=== PATIENT | female | born 1980 | race Caucasian/White ===

== ENCOUNTER 2018-05-05 14:12 | Emergency (ER) | payer OTHER ==
[2018-05-05] MEDS ORDERED: Metoclopramide HCl 10 MG/2 ML VIAL ONE (14:34)
[2018-05-05] MEDS ORDERED: diphenhydrAMINE 50 MG/ML VIAL ONE (14:34)
[2018-05-05] MEDS ORDERED: Sodium Chloride 0.9% 1,000 ML ONE (14:34)
[2018-05-05] MEDS ORDERED: methylPREDNISolone Sod Succ/PF 125 MG/2 ML VIAL ONE (14:34)
[2018-05-05] MEDS ORDERED: Acetaminophen 500 MG TAB ONE (14:34)
--- NOTE | 2018-05-05 15:44 | CT ---
CT HEAD NONCONTRAST: History: Headache. FINDINGS: No comparison. There is no evidence of acute intracranial hemorrhage or infarct. Ventricles appear no rmal in size, shape, and position. There is no mass effect or shift of midline structures. Visualized paranasal sinuses remain well aerated. IMPRESSION: No acute intracranial abnormalities are demonstrated. POS: [facility]
[2018-05-05] MEDS ORDERED: Ketorolac Tromethamine 30 MG/ML VIAL ONE (16:32)
--- NOTE | 2018-05-05 16:45 | CT ---
CT ANGIOGRAM HEAAD WITH CONTRAST: Date: 05/05/18 Time: 1528 hours HISTORY: 37-year-old female with worst headache of life. The aneurysm was discussed by phone with Dr Londono at the time of this dictation. TECHNIQUE: IV contrast injection. Arterial bolus chasing technique scan from C1-2 level to vertex of head. Coronal and sagittal 3D MIP reconstructions. FINDINGS: Located a few millimeters superior to the junction between the bilateral vertebral arteries, there is a tiny focal right lateral outpouching of the basilar artery consistent with a small saccular aneury sm measuring approximately 3 x 3 mm. This is caudal to the origin of the right AICA. The left AICA is at the level of the aneurysm origin. There is no aneurysm at the basilar tip. No other aneurysm is v isualized. The bilateral carotid siphons, M1 segments of bilateral middle cerebral arteries, A1 and A 2 segments of the bilateral anterior cerebral arteries, bilateral posterior cerebral arteries, and bi lateral superior cerebellar arteries, are normal. There is no dural venous sinus thrombosis. IMPRESSION: 1. 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 2. This aneurysm is apparently unruptured, because there is no evidence of subarachnoid hemorrhage o n the noncontrast brain CT. Recommend neurosurgery consultation on an elective basis. POS: [facility]
[2018-05-05 17:43] LABS: INR-International Normal Ratio 1.1; PTT 30.9 SEC (22.9-36.1); Prothrombin Time 14.4 SEC (12.0-14.7)
[2018-05-05 17:49] LABS: #Lymphocytes 1.3 thou/uL (1.20-3.40); #Monocytes 0.2 thou/uL (0.11-0.59); #Neutrophils 8.8 thou/uL (1.40-6.50); %Basophils 0.4 % (0.0-1.0); %Eosinophils 0.2 % (0.0-10.0); %Lymphocytes 12.5 % (21.0-51.0); %Monocytes 1.9 % (0.0-10.0); Hemoglobin 12.1 g/dL (12.0-16.0); Mean Corpuscular HGB CONC 31.6 g/dL (32.0-36.0); Mean Corpuscular Hemoglobin 24.3 pg (27.0-31.0); Mean Corpuscular Volume 76.7 fL (78.0-98.0); Platelet Count 237 thou/uL (130-400); RBC Distribution Width 12.6 % (11.5-14.5); Red Blood Cell (RBC) Count 4.98 mill/uL (4.20-5.40); White Blood Cell (WBC) Count 10.3 thou/uL (4.8-10.8)
[2018-05-05 17:52] LABS: ALT (SGPT) 18 U/L (8-55); AST (SGOT) 16 U/L (5-34); Albumin 4.5 g/dL (3.5-5.0); Alkaline Phosphatase 88 U/L (40-150); Anion Gap 14 mmol/L (10-20); BUN (Urea Nitrogen) 16 mg/dL (7.0-18.7); Bilirubin, Total 0.6 mg/dL (0.2-1.2); Calc. Creatinine Clearance 0 mL/min (70-130); Calcium 9.7 mg/dL (7.8-10.44); Carbon Dioxide 21 mmol/L (22-29); Chloride 105 mmol/L (98-107); Estimated GFR-MDRD 82; Globulin 2.9 g/dL (2.4-3.5); Glucose 105 mg/dL (70-105); Protein, Total 7.4 g/dL (6.0-8.3); Sodium 136 mmol/L (136-145)
== END 2018-05-05 17:37 | disposition short-term general hospital (02) ==
LOC: NAV ERS 14:12
DX: G44.82 Headache associated with sexual activity (principal); I10 Essential (primary) hypertension; F41.9 Anxiety disorder, unspecified; F32.9 Major depressive disorder, single episode, unspecified; Z79.899 Other long term (current) drug therapy
CPT/HCPCS: 70450; 70496; 80053; 85025; 85610; 85730; 96361; 96365; 96375; J1200; J1885; J2765; J2930; J7050